=== PATIENT | female | born 1950 ===

== ENCOUNTER 2017-06-16 14:31 | Emergency (ER) | payer OTHER, MEDICAID ==
[2017-06-16 14:31] VITALS: BMI 36.8
[2017-06-16 14:47] VITALS: RESP 20; TEMP 97.5
--- NOTE | 2017-06-16 16:42 | CT ---
PROCEDURE: CT HEAD WITHOUT CONTRAST. HISTORY: trauma COMPARISON: None available. TECHNIQUE: Axial computed tomography images were obtained through the head/brain without intravenous contrast. Radiation dose: Total exam DLP = 859.97 mGy-cm. This CT exam was performed using one or more of the following dose reduction techniques: Automated exposure control, adjustment of the mA and/or kV according to patient size, and/or use of iterative reconstruction technique. FINDINGS: HEMORRHAGE: No intracranial hemorrhage. BRAIN: No mass effect or edema. Intracranial atherosclerosis. The lopez-white matter differentiation appears intact. Please note that MRI with diffusion imaging is more sensitive in the detection of acute ischemic event. VENTRICLES: No hydrocephalus. CALVARIUM: Unremarkable. PARANASAL SINUSES: Unremarkable as visualized. No significant inflammatory changes. MASTOID AIR CELLS: Unremarkable as visualized. No inflammatory changes. OTHER FINDINGS: None. IMPRESSION: No acute intracranial pathology identified.
[2017-06-16 17:35] VITALS: BP 129/79; PULSE 58; O2SAT 98
--- NOTE | 2017-06-16 17:50 | C.PDOC ---
History Of Present Illness 66 yo female c/o right shoulder pain and headache s/p slip and fall just prior to arrival. Pt was walking, slipped in a puddle and fell on her right side hitting her shoulder and head. No LOC, visual changes, no changes in sensation, chest pain, or SOB. Does not take blood thinners. - HPI Time Seen by Provider: 06/16/17 14:51 Chief Complaint (Nursing): Trauma History Per: Patient, Card Dealer History/Exam Limitations: no limitations Onset/Duration Of Symptoms: Mins Past Medical History Vital Signs: Last Vital Signs Temp 97.5 F L 06/16/17 14:44 Pulse 58 L 06/16/17 17:34 Resp 20 06/16/17 17:34 BP 129/79 06/16/17 17:34 Pulse Ox 98 06/16/17 18:12 - Medical History PMH: Arthritis, Gall Bladder Disease, HTN, Hypercholesterolemia, Osteoporosis, Seizures (UNSURE BUT BITES TONGUE AT NITE) Surgical History: Appendectomy - [facility] LAPAROSCOP LYSIS-PERITONEAL ADHES (05/16/14) LAPAROSCOPIC CHOLECYSTECTOMY (05/16/14) Family History: States: Unknown Family Hx - Social History Hx Tobacco Use: No Hx Alcohol Use: No Hx Substance Use: No - Immunization History Hx Tetanus Toxoid Vaccination: No Hx Influenza Vaccination: Yes Hx Pneumococcal Vaccination: No Review Of Systems Except As Marked, All Systems Reviewed And Found Negative. Musculoskeletal: Positive for: Shoulder Pain Neurological: Positive for: Headache Physical Exam - Physical Exam Appears: Well, Non-toxic, Other (uncomfortable) Skin: Normal Color, Warm, Dry Head: Normacephalic, Tenderness ((+)TTP right partial , no swelling ) Eye(s): bilateral: Normal Inspection, PERRL, EOMI Ear(s): Bilateral: Normal Nose: Normal Oral Mucosa: Moist Throat: Normal, No Erythema, No Exudate Neck: Normal, Normal ROM, Supple Chest: Symmetrical Cardiovascular: Rhythm Regular Respiratory: Normal Breath Sounds Gastrointestinal/Abdominal: Normal Exam, Soft, No Tenderness Back: Normal Inspection Extremity: No Normal ROM (decreased rom of right shoulder secondary to pain), Tenderness (diffuse right shoulder tenderness), No Swelling Pulses: Left Radial: Normal, Right Radial: Normal Neurological/Psych: Oriented x3, Normal Speech, Normal Motor, Normal Sensation ED Course And Treatment O2 Sat by Pulse Oximetry: 98 (RA) Pulse Ox Interpretation: Normal - Other Rad XRAY right humerus X-Ray: Interpreted by Me, Read By Radiologist Interpretation: PROCEDURE: Radiographs of the right humerus. HISTORY: pain. COMPARISON: None available. FINDINGS: BONES: No acute displaced fracture or dislocation. SOFT TISSUES: Unremarkable. No evidence of radiopaque foreign body. OTHER FINDINGS: None. IMPRESSION: No acute displaced fracture, dislocation, or significant joint effusion identified. If symptoms persist, or if there is continued clinical concern, x-ray follow-up in 7-10 days should be considered. XRAY bilateral shoulders X-Ray: Interpreted by Me, Read By Radiologist Interpretation: PROCEDURE: Bilateral shoulder radiographs. HISTORY: pain. COMPARISON: None available. FINDINGS: BONES: No acute displaced fracture. The distal clavicle and underlying ribs appear intact. Degenerative changes of the spine. JOINTS: No acute dislocation. SOFT TISSUES: Soft tissues appear unremarkable. No evidence of radiopaque foreign body. IMPRESSION: No acute displaced fracture or dislocation evident. If symptoms persist or if there is continued clinical concern, x-ray follow-up in 7-10 days should be considered. - CT Scan/US CT Head w/o contrast Other Rad Studies (CT/US): Interpreted By Me, Read By Radiologist CT/US Interpretation: PROCEDURE: CT HEAD WITHOUT CONTRAST. HISTORY: trauma. COMPARISON: None available. TECHNIQUE: Axial computed tomography images were obtained through the head/brain without intravenous contrast. Radiation dose: Total exam DLP = 859.97 mGy-cm. This CT exam was performed using one or more of the following dose reduction techniques: Automated exposure control, adjustment of the mA and/or kV according to patient size, and/or use of iterative reconstruction technique. FINDINGS: HEMORRHAGE: No intracranial hemorrhage. BRAIN: No mass effect or edema. Intracranial atherosclerosis. The lopez-white matter differentiation appears intact. Please note that MRI with diffusion imaging is more sensitive in the detection of acute ischemic event. VENTRICLES: No hydrocephalus. CALVARIUM: Unremarkable. PARANASAL SINUSES: Unremarkable as visualized. No significant inflammatory changes. MASTOID AIR CELLS: Unremarkable as visualized. No inflammatory changes. OTHER FINDINGS: None. IMPRESSION: No acute intracranial pathology identified. Progress Note: On re-evaluation pt notes she feels better. Painimproved. Headache rsolved. Patient has no neurologic deficit, photophobia, rash, fever, or nuchal rigidity. No n/v. Ambulating well, steady gait. Isntructed to follow up with OM din 1-2 days. Disposition - Disposition Disposition: HOME/ ROUTINE Disposition Time: 17:48 Condition: STABLE Additional Instructions: Vaya a ruiz mdico o la clnica en 2-5 riley sin falta, para mas evaluacin. [place] los medicamentos hieu indicado. Volver a la jonel de emergencia en cualquier momento si los sntomas persisten o empeoran. Prescriptions: Acetaminophen [Tylenol 325mg tab] 650 mg PO Q4 PRN #20 tab PRN Reason: Pain, Mild (1-3) Instructions: Contusion in Adults (ED) Forms: [facility] (Bolivian) Print Language: EQUATORIAL GUINEAN - Clinical Impression Clinical Impression: Shoulder contusion, Head contusion
--- NOTE | 2017-06-16 17:53 | RAD ---
PROCEDURE: Radiographs of the right humerus. HISTORY: pain COMPARISON: None available. FINDINGS: BONES: No acute displaced fracture or dislocation. SOFT TISSUES: Unremarkable. No evidence of radiopaque foreign body. OTHER FINDINGS: None. IMPRESSION: No acute displaced fracture, dislocation, or significant joint effusion identified. If symptoms persist, or if there is continued clinical concern, x-ray follow-up in 7-10 days should be considered.
== END 2017-06-16 17:58 | disposition home or self-care (01) ==
LOC: C.ER 14:31
DX: S40.011A Contusion of right shoulder, initial encounter (principal); S00.93XA Contusion of unspecified part of head, initial encounter; W01.0XXA Fall on same level from slipping, tripping and stumbling without subsequent striking against object, initial encounter; Y93.01 Activity, walking, marching and hiking

== ENCOUNTER 2018-12-20 09:53 | Outpatient (CLI) | payer MEDICARE | END 2018-12-20 09:54 | disposition home or self-care (01) | LOC: C.LAB 09:53 | DX: N18.2 Chronic kidney disease, stage 2 (mild) (principal) ==

== ENCOUNTER 2018-12-26 08:33 | Outpatient (CLI) | payer MEDICARE, OTHER | END 2018-12-26 08:34 | disposition home or self-care (01) | LOC: C.CTH 08:33 ==